=== PATIENT | male | born 1955 | race Caucasian/White ===

== ENCOUNTER 2017-04-14 16:16 | Emergency (ER) | payer OTHER ==
[2017-04-14 16:40] LABS: BASOPHIL (%) 1.1 % (0-1); BASOPHIL COUNT 0.1 K/uL (0-0.1); EOSINOPHIL (%) 8.2 % (0-5); EOSINOPHIL COUNT 0.4 K/uL (0-0.3); HEMATOCRIT 41.9 % (38.0-50.0); HEMOGLOBIN 14.5 G/DL (12.5-16.6); IMMATURE GRANULOCYTE (%) 0.8 % (0.0-0.7); LYMPHOCYTE COUNT 1.5 K/uL (1.0-2.8); MCH 31.7 PG (29.0-34.0); MCHC 34.6 G/DL (30.0-36.0); MCV 91.7 FL (86-99); MONOCYTE COUNT 0.4 K/uL (0-0.8); NEUTROPHIL (%) 53.9 % (45-76); NEUTROPHIL COUNT 2.8 K/uL (1.8-6.4); PLATELET COUNT 177 K/uL (156-360); RBC DIS.WIDTH-CV 11.6 % (11.8-14.6); RED BLOOD COUNT 4.57 M/uL (4.00-5.50); WHITE BLOOD COUNT 5.3 K/uL (4.1-10.2)
[2017-04-14 16:45] LABS: AMYLASE 75 IU/L (1-118); CHLORIDE 105 mEq/L (99-109); POTASSIUM 3.8 mEq/L (3.7-5.4); SODIUM 140 mEq/L (136-147)
[2017-04-14 16:47] LABS: GLUCOSE 127 mg/dL (70-99)
[2017-04-14 16:50] LABS: SERUM ETHYL ALCOHOL < 10 mg/dL
[2017-04-14 16:51] LABS: GFR ESTIMATE (CALCULATED) > 59 mL/min/ (58.99-99999)
[2017-04-14 16:52] LABS: UREA NITROGEN (BUN) 17 mg/dL (9-23)
[2017-04-14 16:54] LABS: LIPASE 13 U/L (1.0-51.0)
[2017-04-14 18:26] LABS: APPEARANCE CLEAR ((CLEAR)); BILIRUBIN NEGATIVE; BLOOD SMALL; COLOR STRAW ((YELLOW)); GLUCOSE (STRIP) NEGATIVE; KETONES NEGATIVE; LEUKOCYTES NEGATIVE; NITRITE NEGATIVE; PROTEIN (STRIP) NEGATIVE; UROBILINOGEN 0.2 MG/DL (0.2-1.0)
[2017-04-14 18:29] LABS: BACTERIA RARE /HPF; EPITHELIAL CELLS NONE SEEN /HPF; MUCUS TRACE /LPF; RED BLOOD CELLS 0-5 /HPF (0-5); UCUL ADDED? NO; WHITE BLOOD CELLS 0-5 /HPF (0-5)
[2017-04-14 18:43] LABS: AMPHETAMINE NEGATIVE (500 ng/mL); BARBITURATES NEGATIVE (200 ng/mL); BENZODIAZEPINES NEGATIVE (150 ng/mL); BUPRENORPHINE NEGATIVE (10 ng/mL); COCAINE NEGATIVE (150 ng/mL); METHADONE NEGATIVE (200 ng/mL); METHAMPHETAMINE NEGATIVE (500 ng/mL); OPIATES (MORPHINE) PRESUMPTIVE POSITIVE (100 ng/mL); OXYCODONE NEGATIVE (100 ng/mL); PHENCYCLIDINE NEGATIVE (25 ng/mL); PROPOXYPHENE NEGATIVE (300 ng/mL); THC CANNABINOIDS NEGATIVE (50 ng/mL); TRICYCLIC ANTIDEPRESSANTS NEGATIVE (300 ng/mL)
== END 2017-04-15 02:21 | disposition short-term general hospital (02) ==
LOC: TRA 16:16
PROVIDERS: Emergency Medicine
DX: S32.402A Unspecified fracture of left acetabulum, initial encounter for closed fracture (principal); S42.002A Fracture of unspecified part of left clavicle, initial encounter for closed fracture; S22.32XA Fracture of one rib, left side, initial encounter for closed fracture; S00.81XA Abrasion of other part of head, initial encounter; V13.0XXA Pedal cycle driver injured in collision with car, pick-up truck or van in nontraffic accident, initial encounter; Y93.55 Activity, bike riding; Y92.410 Unspecified street and highway as the place of occurrence of the external cause; I10 Essential (primary) hypertension
CPT/HCPCS: 70450; 71260; 72125; 73030; 73060; 73502; 73552; 74177; 80048; 81003; 82150; 83690; 84999; 85025; 86850; 86900; 86901; 99281; 99285; G0480; J1170; J2270; J3010

== ENCOUNTER 2017-04-18 12:03 | Inpatient (IN) | payer OTHER ==
[~2017-04-18] VITALS: Ht 185.4 cm; Wt 75.5 kg
[2017-04-18 12:00] VITALS: BP 135/77
[2017-04-18] MEDS ORDERED: PAIN RELIEF325 M1 PO (13:32)
[2017-04-18] MEDS ORDERED: COLACE100 MG PO (13:33)
[2017-04-18] MEDS ORDERED: LIORESAL10 MG PO (13:33)
[2017-04-18] MEDS ORDERED: LOVENOX30 MG/0.3 SC (13:34)
[2017-04-18] MEDS ORDERED: MOTRIN800 MG PO (13:35)
[2017-04-18] MEDS ORDERED: OXYCODONE HCL10 MG PO (13:36)
[2017-04-18] MEDS ORDERED: OXYCODONE HCL5 MG PO (13:37)
[2017-04-18] MEDS ORDERED: SENNA LAXATIVE8.6 MG PO (13:38)
[2017-04-18 15:39] VITALS: BP 111/72
[2017-04-19 05:52] VITALS: BP 94/59; BP 98/64
[2017-04-19 05:59] LABS: ALBUMIN 3.5 G/DL (3.2-4.8); ALKALINE PHOSPHATASE 43 IU/L (3-129); ALT (GPT) 16 IU/L (3-49); AST (GOT) 15 IU/L (2-34); CHLORIDE 106 MEQ/L (99-109); CREATININE 0.9 MG/DL (0.6-1.3); GFR ESTIMATE (CALCULATED) > 59 mL/min/ (58.99-99999); GLUCOSE 106 mg/dL (70-99); POTASSIUM 3.9 MEQ/L (3.7-5.4); SODIUM 140 MEQ/L (136-147); TOTAL BILIRUBIN 1.3 MG/DL (0.0-1.0); TOTAL PROTEIN 5.9 G/DL (6.4-8.3); UREA NITROGEN (BUN) 19 mg/dL (9-23)
[2017-04-19 07:17] LABS: MCH 30.8 PG (29.0-34.0); MCV 90.7 FL (86-99); PLATELET COUNT 188 K/uL (156-360); RBC DIS.WIDTH-CV 11.5 % (11.8-14.6); RBC DIS.WIDTH-SD 38.5 % (39-53); RED BLOOD COUNT 3.86 M/uL (4.00-5.50); WHITE BLOOD COUNT 4.4 K/uL (4.1-10.2)
[2017-04-19 07:23] LABS: HEMOGLOBIN 11.9 G/DL (12.5-16.6)
[2017-04-19 16:00] VITALS: BP 96/63
[2017-04-20 05:24] VITALS: BP 105/70
[2017-04-20 15:50] VITALS: BP 105/71
[2017-04-21 05:32] VITALS: BP 112/65
[2017-04-21 15:27] VITALS: BP 114/84
[2017-04-22 05:23] VITALS: BP 120/72
[2017-04-22 10:55] VITALS: BP 105/60
[2017-04-22 15:45] VITALS: BP 108/73
[2017-04-23 05:57] VITALS: BP 94/59
[2017-04-23] MEDS ORDERED: OXYCODONE HCL5 MG PO (13:07)
[2017-04-23] MEDS ORDERED: ASCORBIC ACID500 M3 PO (13:07)
[2017-04-23] MEDS ORDERED: TIZANIDINE HCL4 MG PO (13:07)
[2017-04-23] MEDS ORDERED: THERAGRAN1 TABLET PO (13:07)
[2017-04-23] MEDS ORDERED: ASPIRIN EC325 MG PO (13:07)
[2017-04-23] MEDS ORDERED: FOLIC ACID1 MG PO (13:07)
[2017-04-23 15:20] VITALS: BP 106/68
== END 2017-04-23 15:57 | disposition home health service (06) | DRG 560 ==
LOC: 3WEST 12:03 → ENPENDDIS 04-22 → EDPENDDISDT 04-23 → 3WEST 04-23 15:57
PROVIDERS: Physical Medicine & Rehabilitation Pain Medicine; Radiology Diagnostic Radiology
PROC: F07M0ZZ Range of Motion and Joint Mobility Treatment of Musculoskeletal System - Whole Body (ICD-10-PCS; principal; 2017-04-18)
PROC: 0FB13ZX Excision of Right Lobe Liver, Percutaneous Approach, Diagnostic (ICD-10-PCS; 2017-04-22)
DX: S32.432D Displaced fracture of anterior column [iliopubic] of left acetabulum, subsequent encounter for fracture with routine healing (principal); S32.502D Unspecified fracture of left pubis, subsequent encounter for fracture with routine healing; S42.032D Displaced fracture of lateral end of left clavicle, subsequent encounter for fracture with routine healing; S22.32XD Fracture of one rib, left side, subsequent encounter for fracture with routine healing; V13.4XXD Pedal cycle driver injured in collision with car, pick-up truck or van in traffic accident, subsequent encounter; R26.2 Difficulty in walking, not elsewhere classified; C85.99 Non-Hodgkin lymphoma, unspecified, extranodal and solid organ sites; J84.10 Pulmonary fibrosis, unspecified; N40.0 Benign prostatic hyperplasia without lower urinary tract symptoms; R03.0 Elevated blood-pressure reading, without diagnosis of hypertension; R91.8 Other nonspecific abnormal finding of lung field; S00.03XD Contusion of scalp, subsequent encounter; S16.1XXD Strain of muscle, fascia and tendon at neck level, subsequent encounter; S30.0XXD Contusion of lower back and pelvis, subsequent encounter; D62 Acute posthemorrhagic anemia; N20.0 Calculus of kidney; M79.1 Myalgia; Z60.2 Problems related to living alone; Z91.040 Latex allergy status
CPT/HCPCS: 70450; 71260; 72125; 73030; 73060; 73502; 73552; 74177; 74183; 77012; 80048; 80053; 81003; 82105 90; 82150; 83690; 84999; 85025; 85027; 85610; 85730; 86850; 86900; 86901; 88305; 97110 GO; 97530 GP; 99281; 99285; G0480; J1170; J1650; J2270; J3010

== ENCOUNTER 2017-05-01 13:55 | Emergency (ER) | payer OTHER ==
[~2017-05-01] VITALS: Ht 185.4 cm; Wt 76.0 kg
[~2017-05-01 13:55] MED LIST: ASCORBIC ACID500 M3 PO; ASPIRIN EC325 MG PO; COLACE100 MG PO; FOLIC ACID1 MG PO; LIORESAL10 MG PO; LOVENOX30 MG/0.3 SC; MOTRIN800 MG PO; OXYCODONE HCL10 MG PO; OXYCODONE HCL5 MG PO; PAIN RELIEF325 M1 PO; SENNA LAXATIVE8.6 MG PO; THERAGRAN1 TABLET PO; TIZANIDINE HCL4 MG PO
[2017-05-01 17:19] VITALS: BP 0/0
== END 2017-05-01 17:20 | disposition home or self-care (01) ==
LOC: EME 13:55
DX: S80.12XA Contusion of left lower leg, initial encounter (principal); X58.XXXA Exposure to other specified factors, initial encounter; Z79.82 Long term (current) use of aspirin; Z87.81 Personal history of (healed) traumatic fracture
CPT/HCPCS: 93971; 99281; 99284